=== PATIENT | female | born 1950 | race Caucasian/White ===

== ENCOUNTER → 2016-11-11 | Outpatient (CLI) | payer OTHER ==
[~2016-11-11] MED LIST: ACET-1222 PO; ALLDSR/24 PO; ASPCH81X PO; ATOR-54 PO; BENA20TA PO; BENA20TA14 PO; CMD5 PO; CYCL10TA6 PO; ESCI10TA17 PO; FEXO1TAB49 PO; FLUT0.0529 NAE; INSDGI SC; INSDGIPEN SC; MAGN400T6 PO; METF500T5 PO; METO25TA56 PO; METO5TAB2 PO; NAPR500T3 PO; REPA0.5T PO; RIZA1TAB11 PO; ULT50X PO; WARF5TAB90 PO
--- NOTE | 2016-11-11 14:53 | MAMMOGRAPHY REPORT ---
BILATERAL DIGITAL SCREENING MAMMOGRAM WITH CAD: 11/11/2016 TECHNIQUE: Current study was also evaluated with a Computer Aided Detection (CAD) system. Bilatera l CC and MLO views were obtained. COMPARISON: Comparison is made to exams dated: 10/31/2014 mammogram, 11/06/2015 mammogram, 10/25/2013 m ammogram, 10/12/2012 mammogram, 10/07/2011 mammogram, and 10/01/2010 mammogram - [facility] enter. BREAST COMPOSITION: There are scattered areas of fibroglandular density in both breasts. FINDINGS: No suspicious masses, calcifications, or areas of architectural distortion are noted in e ither breast. There has been no significant interval change compared to prior exams. Scattered bilat eral benign-appearing calcifications are not significantly changed. IMPRESSION: ACR BI-RADS CATEGORY 2: BENIGN There is no mammographic evidence of malignancy. A 1 year screening mammogram is recommended. The p atient will receive written notification of the results. Approximately 10% of breast cancers are not detected with mammography. A negative mammographic repor t should not delay biopsy if a clinically suggestive mass is present. Elvira Villegas M.D. ah/:11/11/2016 08:05:10 Technical Support Technician: Annetta TONG(Mark)(M), [facility] letter sent: Normal 1/2 BI-RADS Code: ACR BI-RADS Category 2: Benign
== END | disposition home or self-care (01) ==
LOC: C.MAMM 07:16
PROVIDERS: ATTEND Family Medicine
DX: Z12.31 Encounter for screening mammogram for malignant neoplasm of breast (principal)

== ENCOUNTER → 2017-11-18 | Outpatient (CLI) | payer OTHER ==
[~2017-11-18] MED LIST changes: -ALLDSR/24 PO; -ASPCH81X PO; -BENA20TA PO; -CYCL10TA6 PO; -FLUT0.0529 NAE; -INSDGI SC; -METO5TAB2 PO; -NAPR500T3 PO; -REPA0.5T PO
--- NOTE | 2017-11-18 14:16 | MAMMOGRAPHY REPORT ---
BILATERAL DIGITAL SCREENING MAMMOGRAM TOMOSYNTHESIS WITH CAD: 11/18/2017 CLINICAL HISTORY: Routine screening. Patient has no complaints. TECHNIQUE: Breast tomosynthesis in addition to standard 2D mammography was performed. Current study was also evaluated with a Computer Aided Detection (CAD) system. COMPARISON: Comparison is made to exams dated: 11/11/2016 mammogram, 11/06/2015 mammogram, 10/31/2014 ma mmogram, 10/25/2013 mammogram, 10/12/2012 mammogram, and 10/07/2011 mammogram - [facility] nter. BREAST COMPOSITION: There are scattered areas of fibroglandular density in both breasts. FINDINGS: No suspicious masses, calcifications, or areas of architectural distortion are noted in ei ther breast. There has been no significant interval change compared to prior exams. Scattered bilater al benign-appearing calcifications are not significantly changed. IMPRESSION: ACR BI-RADS CATEGORY 2: BENIGN There is no mammographic evidence of malignancy. A 1 year screening mammogram is recommended. The pa tient will receive written notification of the results. Approximately 10% of breast cancers are not detected with mammography. A negative mammographic report should not delay biopsy if a clinically suggestive mass is present. Elvira Villegas M.D. /:11/18/2017 07:43:18 Concession Attendant: Shanda JONAS)(Jose), [facility] letter sent: Normal 1/2 BI-RADS Code: ACR BI-RADS Category 2: Benign
== END | disposition home or self-care (01) ==
LOC: C.MAMM 07:21
PROVIDERS: ATTEND Family Medicine
DX: Z12.31 Encounter for screening mammogram for malignant neoplasm of breast (principal)

== ENCOUNTER 2025-02-19 15:52 | Inpatient (IN) ==
--- NOTE | 2025-02-19 16:19 | Emergency Department Note ---
Impression & Plan Chest pain on exertion, HTN (hypertension), Atrial fibrillation, currently in sinus rhythm, On apixaban therapy ED Provider Note NAME: MARIUM LOPEZ AGE: 74 SEX: F : 1950 ARRIVES VIA: Ambulance INFORMANT: Patient ED PROVIDER(S): Raffi Gallegos MD CHIEF COMPLAINT: Chest pain PLAN: Disposition: Admit MEDICAL DECISION MAKING: The patient is a pleasant 74-year-old woman with a past medical history of atrial fibrillation on Eliquis, hypertension who presents to the emergency department via EMS coming by her for evaluation of chest pain that began at 8 AM this morning when she was doing housework. Patient denies any prior history of exertional chest pain. She reports her pain resolved after receiving nitroglycerin and full dose aspirin by EMS. The patient reports she did feel as though she may have had some increased indigestion this morning when she was at rest but then felt the pain become worse and persist. She reports having some intermittent headache and back pain this morning and over the past month or so. Patient was seen in urgent care in December for concern for tick bite. On evaluation the patient is in no acute distress, afebrile blood pressure 140/60s and present otherwise stable. She appears clinically dry. She exhibits no focal neurologic deficits. EKG without overt acute ischemia. CXR negative for acute cardiopulmonary process per my personal preliminary review/interpretation. WBC, H/H and platelets within normal limits. Chemistry without metabolic acidosis. Creatinine 1.3 similar to prior range of values. Electrolytes LFTs unremarkable. Initial high-sensitivity troponin 3.3, within normal limits. Lipase is normal. TSH within limits. Lyme screen was negative. Given the patient's report of pain which worsened with exertion and improvement with nitroglycerin and aspirin cardiac etiology cannot be completely excluded at this time. Heart score is 5, moderate risk. Patient does agree with plan for admission for further evaluation. Case was discussed with Thong Snell with [facility] hospitalist to evaluate the patient for admission. Further management per admitting team. Triage Nursing notes reviewed and agree them. Prior/external medical records reviewed Vital Signs: reviewed Differential diagnosis: Cardiac ischemia, aortic dissection, pulmonary embolism, pneumothorax, pneumonia, pericarditis, myocarditis, esophageal rupture, GERD, cholecystitis, pancreatitis, musculoskeletal, as well as other pathologies. ER treatment provided: See below. Diagnostics interpreted by me: ECG: Sinus rhythm, first degree AV block, 61 bpm, no overt ST elevation or depression Cardiac Monitoring: An order for continuous cardiac monitoring was placed and demonstrated sinus rhythm, first-degree AV block, 61 bpm, no ectopy. Laboratory studies: See below Imaging studies: See below Consultation(s): Thong Snell with [facility] hospitalist HPI: Per MDM. ROS: See above HPI for pertinent positives & negatives. A total of 10 systems reviewed and were otherwise negative. VITALS:See Below PHYSICAL EXAMINATION: GENERAL: Awake, alert, in no distress HENT: Normocephalic, atraumatic. Oropharynx with dry mucous membranes and otherwise unremarkable. EYES: Normal conjunctiva. Sclera non-icteric. NECK: Supple. No nuchal rigidity. FROM. No JVD. RESPIRATORY: Clear to auscultation. CARDIAC: Regular rate, normal rhythm. Extremities warm and well perfused. Pulses equal. ABDOMEN: Soft, non-distended. No tenderness to palpation. No rebound or guarding. No masses. MUSCULOSKELETAL: Chest examination reveals no tenderness. The back is symmetrical on inspection without obvious abnormality. There is no CVA tenderness to palpation. No joint edema. LOWER EXTREMITIES: Calves are equal size bilaterally and non-tender. No edema. No discoloration. NEURO: Cranial nerves II-XII grossly intact. 5/5 strength and SILT x 4 extremities. Intact [id number]. SKIN: No rash or jaundice noted. Raffi Gallegos MD Past Med/Surg History Problem List On apixaban therapy (Acute) Chest pain on exertion (Acute) Rotator cuff arthropathy of right shoulder History of knee replacement, total (Chronic) "both knees around 2006" Afib (Chronic) Hypertension (Chronic) History of diabetes mellitus Atrial fibrillation, currently in sinus rhythm (Acute) Atrial fibrillation, currently in sinus rhythm (Acute) HTN (hypertension) (Chronic) Anticoagulated on Coumadin (Chronic) Other bilateral secondary osteoarthritis of knee (Chronic) Depression (Chronic) S/P KAIT (total abdominal hysterectomy) (Chronic) Social History Smoking Status: Never smoker Hx Alcohol Use: Yes Hx Substance Use: No Preferred Language: Danish Communication Ability: Effective Clinic Assistant Required: No Beliefs That Will Affect Care: None Current Living Situation: Spouse Feels Safe at Home: Yes Safety Concerns: Feels Safe At This Time Allergies Allergies Allergy/AdvReac Type Severity Reaction Status Date / Time No Known Allergies Allergy Mild Verified 02/19/25 18:11 Home Meds Home Medications Medication Instructions Recorded Confirmed atorvastatin 20 mg tablet 20 mg PO DAILY #0 tabs 07/31/13 02/19/25 escitalopram oxalate 10 mg tablet 10 mg PO DAILY ##0 05/02/17 02/19/25 (Lexapro) fexofenadine 180 mg tablet 180 mg PO DAILY #0 tabs 05/02/17 02/19/25 (Ashanti Allergy) magnesium oxide 400 mg PO DAILY #0 tabs 05/02/17 02/19/25 metformin 500 mg tablet,extended 500 mg PO BID ##0 05/02/17 02/19/25 release 24 hr metoprolol tartrate 25 mg tablet 12.5 mg PO DAILY ##0 05/02/17 02/19/25 apixaban 5 mg tablet (Eliquis) 5 mg PO BID 01/08/24 02/19/25 benazepril 10 mg tablet 10 mg PO DAILY 01/08/24 02/19/25 allopurinol 100 mg tablet 100 mg PO DAILY 01/06/25 02/19/25 insulin degludec 100 29 unit subcut DAILY 02/19/25 02/19/25 unit-liraglutide 3.6 mg/mL(3 mL) subcutaneous pen (Xultophy 100/3.6) sitagliptin phosphate 25 mg tablet 25 mg PO DAILY 02/19/25 02/19/25 (Januvia) Results & Data (ED) Vital Signs Vital Signs - 24 hr 02/19/25 15:41 02/19/25 15:55 02/19/25 15:55 Temperature 36.6 C 36.6 C Temperature Source Oral Oral Pulse Rate 73 Pulse Rate [Left Finger] 63 Respiratory Rate 18 18 Respiratory Effort / Characteristics Non-Labored Respiratory Depth Normal Respiratory Pattern Regular Blood Pressure 148/66 H Blood Pressure [Left Arm] 148/66 H Blood Pressure Mean 93 Blood Pressure Mean [Left Arm] 93 Pulse Oximetry 92 94 Oxygen Delivery Method Room Air Room Air Room Air Sepsis Recent Fever Within 48 Hours No Sepsis New/Unexplained Change in Mental Status No Sepsis Action Taken by Nursing No Action Required 02/19/25 16:25 Temperature Temperature Source Pulse Rate 65 Pulse Rate [Left Finger] Respiratory Rate 16 Respiratory Effort / Characteristics Respiratory Depth Respiratory Pattern Blood Pressure Blood Pressure [Left Arm] Blood Pressure Mean Blood Pressure Mean [Left Arm] Pulse Oximetry 96 Oxygen Delivery Method Room Air Sepsis Recent Fever Within 48 Hours Sepsis New/Unexplained Change in Mental Status Sepsis Action Taken by Nursing Laboratory Data Attestation: I reviewed the patient's lab results. 02/19/25 16:00 02/19/25 16:00 Lab Results 02/19/25 02/19/25 Range/Units 16:00 17:00 WBC 10.63 (4.8-10.8) K/ul RBC 4.21 (4.20-5.40) M/uL Hgb 12.2 (12.0-16.0) g/dl Hct 37.5 (37.0-47.0) % MCV 89.1 (80.0-100.0) fL MCH 29.0 (25.0-34.0) pg MCHC 32.5 (32.0-36.0) g/dL RDW Std Deviation 43.8 (36.4-46.3) fL RDW Coeff of Olya 13.4 (11.5-14.5) % Plt Count 258 (130-400) K/uL MPV 9.9 (9.4-12.4) fL Immature Gran % (Auto) 0.3 % Neut % (Auto) 66.2 % Lymph % (Auto) 23.9 % Nash % (Auto) 6.5 % Eos % (Auto) 2.6 % Baso % (Auto) 0.5 % Neut # (Auto) 7.04 H (1.40-6.50) K/uL Lymph # (Auto) 2.54 (1.20-3.40) K/uL Nash # (Auto) 0.69 H (0.11-0.59) K/uL Eos # (Auto) 0.28 (0.00-0.50) K/uL Baso # (Auto) 0.05 (0.00-0.20) K/uL Immature Gran # (Auto) 0.03 (0.01-0.20) K/uL PT 10.4 (9.0-12.0) Seconds INR 1.0 (0.9-1.1) Sodium 135 L (136-145) mmol/L Potassium 4.4 (3.5-5.1) mmol/L Chloride 100 (98-107) mmol/L Carbon Dioxide 26 (21-32) mmol/L Anion Gap 9 (3-11) BUN 25 H (6-23) mg/dl Creatinine 1.37 H (0.6-1.2) mg/dl Est Cr Clr Drug Dosing 36.2 ml/min eGFR 40.52 BUN/Creatinine Ratio 18.2 (10-20) Glucose 188 H (70-99(Fasting)) mg/dl Calcium 9.1 (8.6-10.3) mg/dl Phosphorus 3.6 (2.5-4.9) mg/dl Magnesium 1.9 (1.7-2.4) mg/dl Total Bilirubin 0.3 (0.2-1.0) mg/dl AST 20 (13-39) U/L ALT 16 (7-52) U/L Alkaline Phosphatase 98 (34-104) U/L Troponin I High Sens 3.3 (0-14) pg/ml Total Protein 6.9 (6.0-8.3) gm/dl Albumin 3.8 (3.4-5.0) gm/dl Globulin 3.1 (2.5-4.0) gm/dl Albumin/Globulin Ratio 1.2 (0.9-2) Lipase 62 (11-82) U/L TSH 1.145 (0.300-4.500) uIu/ml Urine Color Yellow Urine Appearance Clear (Clear) Urine pH 7.5 (4.5-7.5) Ur Specific [place] 1.012 (1.000-1.030) Urine Protein Negative (Negative) Urine Glucose (UA) Negative (Negative) Urine Ketones Negative (Negative) Urine Blood Negative (Negative) Urine Nitrite Negative (Negative) Urine Bilirubin Negative (Negative) Urine Urobilinogen Negative (Negative) Ur Leukocyte Esterase Trace H (Negative) Urine WBC (Auto) 0-5 (0-5) /hpf Urine RBC (Auto) 3-5 H (0-2) /hpf U Hyaline Cast (Auto) 0-2 (0-2) /lpf U Epithel Cells (Auto) 0-2 (0-2) /hpf Urine Bacteria (Auto) None Seen (None Seen) Urine Comment Lyme Disease Screen Negative (Negative) Administered Medications Apixaban (Apixaban 5 Mg Tablet) 5 mg PO BID SHASHI Stop: 03/21/25 20:59 Last Admin: 02/19/25 21:58 Dose: 5 mg Documented By: KRT Insulin Aspart (Insulin Aspart Per Unit Charge) 0 units SC Q6 SHASHI Stop: 03/21/25 20:59 Last Admin: 02/20/25 04:59 Dose: Not Given Documented By: Admin: 02/19/25 23:11 Dose: Not Given Documented By: Admin: 02/19/25 21:54 Dose: Not Given Documented By: KRT Metoprolol Succinate (Metoprolol Succ 25mg Ext Rel Tab) 12.5 mg PO BID [facility] Stop: 03/21/25 20:59 Last Admin: 02/19/25 22:02 Dose: Not Given Documented By: KRT Discontinued Medications Sodium Chloride (Nss) 500 mls @ 999 mls/hr IV .Q31M ONE Stop: 02/19/25 16:41 Last Infusion: 02/19/25 18:52 Dose: Infused Documented By: Admin: 02/19/25 16:37 Dose: 999 mls/hr Documented By: CRISTINA Imaging Data Radiologist's Impression: Chest X-Ray 02/19/25 16:11 EXAM: X-ray chest one-view portable CLINICAL HISTORY: Chest pain PRIORS: 05/02/2017 TECHNIQUE: Frontal view chest FINDINGS: Large body habitus noted. The chest is well-expanded. No airspace consolidation, effusion or congestive changes. Heart size is normal. No pneumothorax. Trachea is patent. Osseous structures demonstrate no acute abnormality. No radiopaque foreign body. IMPRESSION: No plain film evidence of an acute cardiopulmonary process. Electronically signed by Izabela Willis 02-19-2025 4:57 PM Discharge Plan Visit Data Chief Complaint: Chest Pain Stated Complaint: CHEST PAIN ED Provider: Raffi Gallegos Discharge Problem: Chest pain on exertion, HTN (hypertension), Atrial fibrillation, currently in sinus rhythm, On apixaban therapy Patient Disposition: Admitted As Inpatient Condition: Fair Discharge Instructions Interventions: ED Discharge Assessment Last Done: 02/19/25 20:15 Discharge Problem: HTN (hypertension) Qualifiers: Hypertension type: unspecified Qualified Code(s): I10 - Essential (primary) hypertension
[2025-02-19 16:22] LABS: Hematocrit (blood only) 37.5 % (37.0-47.0); Hemoglobin 12.2 g/dl (12.0-16.0); Immature Granulocytes # (auto) 0.03 K/uL (0.01-0.20); Immature Granulocytes % (auto) 0.3 %; Mean Corpuscular Hemoglobin 29.0 pg (25.0-34.0); Mean Corpuscular Volume 89.1 fL (80.0-100.0); Platelet Count 258 K/uL (130-400); RDW Standard Deviation 43.8 fL (36.4-46.3); Red Blood Count 4.21 M/uL (4.20-5.40); White Blood Count 10.63 K/ul (4.8-10.8)
[2025-02-19] MEDS: SODIUM CHLORIDE 0.9% 500 ML IV ONE (16:37)
[2025-02-19 16:39] LABS: Alanine Aminotransferase 16.0 U/L (7-52); Albumin Globulin Ratio 1.2 (0.9-2); Alkaline Phosphatase 98.0 U/L (34-104); Anion Gap 9.0 (3-11); Bilirubin,Total 0.3 mg/dl (0.2-1.0); Blood Urea Nitrogen 25.0 mg/dl (6-23); Calcium 9.1 mg/dl (8.6-10.3); Carbon Dioxide 26.0 mmol/L (21-32); Chloride 100.0 mmol/L (98-107); Creatinine Clr Calc Pharmacy 36.2 ml/min; Globulin 3.1 gm/dl (2.5-4.0); Glucose 188.0 mg/dl (70-99(Fasting)); Lipase 62.0 U/L (11-82); Magnesium 1.9 mg/dl (1.7-2.4); Potassium 4.4 mmol/L (3.5-5.1); Sodium 135.0 mmol/L (136-145); Total Protein 6.9 gm/dl (6.0-8.3)
[2025-02-19 16:50] LABS: INR 1.0 (0.9-1.1); Prothrombin Time 10.4 Seconds (9.0-12.0)
[2025-02-19 16:54] LABS: Thyroid Stimulating Hormone 1.145 uIu/ml (0.300-4.500)
--- NOTE | 2025-02-19 16:57 | XRay Report ---
EXAM: X-ray chest one-view portable CLINICAL HISTORY: Chest pain PRIORS: 05/02/2017 TECHNIQUE: Frontal view chest FINDINGS: Large body habitus noted. The chest is well-expanded. No airspace consolidation, effusion or congestive changes. Heart size is normal. No pneumothorax. Trachea is patent. Osseous structures demonstrate no acute abnormality. No radiopaque foreign body. IMPRESSION: No plain film evidence of an acute cardiopulmonary process. Electronically signed by Izabela Wilils 02-19-2025 4:57 PM
[2025-02-19 17:17] LABS: Appearance Urine Clear (Clear); Bacteria Urine Automated None Seen (None Seen); Cast Urine Automated 0-2 /lpf (0-2); Epithelial Cell Urine Auto 0-2 /hpf (0-2); Glucose Urine UA Negative (Negative); WBC Urine Automated 0-5 /hpf (0-5)
--- NOTE | 2025-02-19 18:39 | History & Physical Report ---
<Statement entered by Richar Stone, - 02/19/25 18:43> Qualifies as cardiac chest pain/angina by description. Multiple cardiac risk factors. Chest pain has resolved with nitro. Troponin reassuring. For stress test in AM. Given 50% of basal insulin in AM as she will be NPO. Date of Service February 19, 2025 Assessment & Plan (1) Chest pain on exertion: Plan: 74 F with past medical history of Afib on Eliquis and rate control with m etoprolol, HTN, DM Type II without insulin presenting with chest pain. Reports having chest pain when listing a pot of water to freeze corn this morning. Chest pain 8/10, throbbing, and radiating to head, neck and back. She thought it was initially indigestion, but persisted throughout the day. She took Tylenol and a baby aspirin at home. Arrived here via EMS. Aspirin and Nitro given by EMS with relief of chest pain. #Chest pain, exertional * Admit to Telemetry for further workup * Chest pain, exertional in nature, w/ radiation to back/neck--> ASA and Nitro given EMS w/ relief * EKG with no acute ischemia * Chest Xray without acute cardiopulmonary dx * Initial Trop 3, 2H recheck pending. * Routine stress Echo ordered; Cardiology consult ordered * Most recent TTE on 11/12/2023 showing LV ejection Fraction = 55%; left ventricular diastolic function is mildly abnormal (grade I); New mild aortic valve sclerosis found * Stable Mag 1.9, Phos 3.6--> will recheck with AM labs * NPO at [place] for cardiac stress and poss cardiac cath tomorrow #Paroxysmal Afib * Continue rate control with home Metoprolol * Tele monitoring * EKG for chest pain as needed #CKD #Hypertension * BP Goal <130/80 * History of low BP's and recently weaned from benazepril; BP stable here 140's/80's * Stable renal functioning; Baseline Creatinine 1.1-1.2; now 1.37 #Diabetes Mellitus, Type II, insulin-dependent * SSI while inpatient * Hold home Xultophy; will given Lantus while inpatient--> decreased dose for NPO status * Most recent A1C 6.8% (12/2024) DVT Ppx: SCD's, on Eliquis Code status: Full PCP: Dr. Diane Mart Dispo: Admit for further workup Patient seen in collaboration with Dr. Stone. Please see addendum.I spent a total of 65 minutes coordinating, documenting and providing care for this patient excluding time spent in the performance of separately billed services or time spent by another provider/QHP. (2) Afib: (3) Hypertension: (4) History of diabetes mellitus: History of Present Illness Primary Care Provider: Diane Mart MD 74 F with past medical history of Afib on eliquis and rate control with metoprolol, HTN, DM Type II without insulin presenting with chest pain. Reports having chest pain when listing a pot of water to freeze corn this morning. Chest pain 8/10, throbbing, and radiating to head, neck and back. She thought it was initially indigestion, but persisted throughout the day. She took Tylenol and a baby aspirin at home. Arrived here via EMS. Aspirin and Nitro given by EMS with relief of chest pain. Denies fever, chills, weight loss, weakness, cognitive changes, vision/hearing changes, swelling, difficulty breathing, urinary concerns, N/V/D, joint swelling/pain, ambulation difficulty, skin rashes, lesions, bleeding, bruising. In the ED, patient was hemodynamically stable with no evidence of infection or sepsis. Labs were essentially unremarkable. Trop 3.3 initially with 2H recheck pending. History of Afib with rate control with Metoprolol, also on Eliquis. Mag and Phos stable. TSH norm. EKG showing Sinus rhythm, first AV block, 61 bpm, no overt ST elevation or depression, QTc 43, 236. Chest Xray showing acute cardiopulmonary process. As per external chart review, patient was seen by Cardiology on 11/2024. As per visit record, patient had a TTE on 11/12/2023 showing LV ejection Fraction = 55%; left ventricular diastolic function is mildly abnormal (grade I); Mild aortic valve sclerosis is present. On November 03, 2023, patient had a Lexiscan negative for inducible ischemia or myocardial scar. Gated SPECT images revealed normal myocardial thickening and wall motion. The LV ejection fraction was calculated at 70%. History obtained primarily from the patient and via hospitalization record. The patient's family was at the bedside and assisted with past medical history. External chart review obtained from [employer]. Allergies Allergy/AdvReac Type Severity Reaction Status Date / Time No Known Allergies Allergy Mild Verified 02/19/25 18:11 Home Medications Medication Instructions Recorded Confirmed Type atorvastatin 20 mg tablet 20 mg PO DAILY #0 tabs 07/31/13 02/19/25 History escitalopram oxalate 10 mg tablet 10 mg PO DAILY ##0 05/02/17 02/19/25 History (Lexapro) fexofenadine 180 mg tablet 180 mg PO DAILY #0 tabs 05/02/17 02/19/25 History (Ashanti Allergy) magnesium oxide 400 mg PO DAILY #0 tabs 05/02/17 02/19/25 History metformin 500 mg tablet,extended 500 mg PO BID ##0 05/02/17 02/19/25 History release 24 hr metoprolol tartrate 25 mg tablet 12.5 mg PO DAILY ##0 05/02/17 02/19/25 History apixaban 5 mg tablet (Eliquis) 5 mg PO BID 01/08/24 02/19/25 History benazepril 10 mg tablet 10 mg PO DAILY 01/08/24 02/19/25 History allopurinol 100 mg tablet 100 mg PO DAILY 01/06/25 02/19/25 History insulin degludec 100 29 unit subcut DAILY 02/19/25 02/19/25 History unit-liraglutide 3.6 mg/mL(3 mL) subcutaneous pen (Xultophy 100/3.6) sitagliptin phosphate 25 mg tablet 25 mg PO DAILY 02/19/25 02/19/25 History (Januvia) Past Med/Surg History Problem List Chest pain on exertion (Acute) Rotator cuff arthropathy of right shoulder History of knee replacement, total (Chronic) "both knees around 2006" Afib (Chronic) Hypertension (Chronic) History of diabetes mellitus Atrial fibrillation, currently in sinus rhythm (Acute) Atrial fibrillation, currently in sinus rhythm (Acute) HTN (hypertension) (Chronic) Anticoagulated on Coumadin (Chronic) Other bilateral secondary osteoarthritis of knee (Chronic) Depression (Chronic) S/P KAIT (total abdominal hysterectomy) (Chronic) Social History Smoking Status: Never smoker Preferred Language: Romansh Feels Safe at Home: Yes Review of Systems Review of Systems: All systems reviewed & are unremarkable except as noted in HPI & below Physical Exam Physical Exam: VITALS: Reviewed. WEIGHT/BMI reviewed. GEN: Healthy appearing, well-developed, NAD. PSYCH: Good Judgment. AOx3. Normal memory, mood, and affect. HEENT -Head: NC/AT; -Eyes: PERRL, EOMI. No discharge or redn ess; -Ears: External ears are normal. Normal TMs. -Nose: Normal nares. -Mouth and throat: MMM. Normal gums, muc lo, palate,. Good dentition. NECK: Supple, with no masses. CV: RRR, no m/r/g. LUNGS: CTAB, no w/r/c. ABD: Soft, NT/ND, NBS, no masses or organomegaly. : N/A SKIN: Warm, well perfused. No skin rashes or abnormal lesions. MSK: No deformities, Normal gait. EXT: No clubbing, cyanosis, or edema. NEURO: Ambulating with no limitations. Normal muscle strength and tone. No focal deficits. Results & Data Results & Data Vital Signs (Past 12 Hours) Vital Signs Temp Pulse Pulse Resp BP BP Pulse Ox 02/19/25 16:25 65 16 96 02/19/25 15:55 36.6 C 63 18 148/66 H 94 02/19/25 15:55 02/19/25 15:41 36.6 C 73 18 148/66 H 92 O2 Del Method 02/19/25 16:25 Room Air 02/19/25 15:55 Room Air 02/19/25 15:55 Room Air 02/19/25 15:41 Room Air Laboratory Results Short CBC 02/19/25 Range/Units 16:00 WBC 10.63 (4.8-10.8) K/ul Hgb 12.2 (12.0-16.0) g/dl Hct 37.5 (37.0-47.0) % Plt Count 258 (130-400) K/uL BMP 02/19/25 16:00 Sodium 135 L Potassium 4.4 Chloride 100 Carbon Dioxide 26 BUN 25 H Creatinine 1.37 H Glucose 188 H Calcium 9.1 Liver Function 02/19/25 Range/Units 16:00 Total Bilirubin 0.3 (0.2-1.0) mg/dl AST 20 (13-39) U/L ALT 16 (7-52) U/L Alkaline Phosphatase 98 (34-104) U/L Albumin 3.8 (3.4-5.0) gm/dl Urine 02/19/25 Range/Units 17:00 Urine Color Yellow Urine Appearance Clear (Clear) Urine pH 7.5 (4.5-7.5) Ur Specific [place] 1.012 (1.000-1.030) Urine Protein Negative (Negative) Urine Glucose (UA) Negative (Negative) Diagnostic Findings Chest X-Ray 02/19/25 16:11 EXAM: X-ray chest one-view portable CLINICAL HISTORY: Chest pain PRIORS: 05/02/2017 TECHNIQUE: Frontal view chest FINDINGS: Large body habitus noted. The chest is well-expanded. No airspace consolidation, effusion or congestive changes. Heart size is normal. No pneumothorax. Trachea is patent. Osseous structures demonstrate no acute abnormality. No radiopaque foreign body. IMPRESSION: No plain film evidence of an acute cardiopulmonary process. Electronically signed by Izabela Willis 02-19-2025 4:57 PM Code Status & VTE Plan VTE Prophylaxis Plan VTE Prophylaxis will be ordered: Yes Supervising Physician Co-Signing Physician Notes Patient seen and examined at bedside. qualifies as cardiac chest pain/angina. chest pain wiht exertion, relieved by nitro. EKG and troponin reassuring. For Stress test in AM.
[2025-02-19] MEDS ORDERED: PHARMACY GLYCEMIC MGMT CONSULT PRN (18:50)
[2025-02-19] MEDS ORDERED: ALUMINUM/MAGNESIUM SUSP 30 ML UDC PO PRN (20:37)
[2025-02-19] MEDS ORDERED: CARBOHYDRATES FOR HYPOGLYCEMIA PO PRN (20:37)
[2025-02-19] MEDS ORDERED: GLUCAGON FOR INJ 1 MG VIAL SQ PRN (20:37)
[2025-02-19] MEDS ORDERED: POLYETHYLENE (MIRALAX) 17 GM PACK PO PRN (20:37)
[2025-02-19] MEDS ORDERED: DEXTROSE 50% 50 ML SYRINGE IV PRN (20:37)
[2025-02-19] MEDS ORDERED: GLUCOSE 40% GEL 15 GM TUBE PO PRN (20:37)
[2025-02-19] MEDS ORDERED: GLUCOSE 10 TAB/TUBE PO PRN (20:37)
[2025-02-19] MEDS ORDERED: ONDANSETRON INJ 2 MG/ML 2 ML VIAL IV PRN (20:37)
[2025-02-19] MEDS ORDERED: MAGNESIUM HYDROXIDE SUSP 30 ML UDC PO PRN (20:37)
[2025-02-19] MEDS: INSULIN ASPART PER UNIT CHARGE SC SCH (21:54)
[2025-02-19] MEDS: APIXABAN 5 MG TABLET PO SCH (21:58)
[2025-02-19] MEDS: METOPROLOL SUCC 25MG EXT REL TAB PO SCH (22:02)
[2025-02-20 06:26] LABS: Hematocrit (blood only) 37.3 % (37.0-47.0); Hemoglobin 12.1 g/dl (12.0-16.0); Mean Corpuscular Hemoglobin 28.9 pg (25.0-34.0); Mean Corpuscular Volume 89.2 fL (80.0-100.0); Platelet Count 245 K/uL (130-400); RDW Standard Deviation 43.7 fL (36.4-46.3); Red Blood Count 4.18 M/uL (4.20-5.40); White Blood Count 7.61 K/ul (4.8-10.8)
[2025-02-20 06:59] LABS: Anion Gap 7.0 (3-11); Blood Urea Nitrogen 23.0 mg/dl (6-23); Calcium 9.6 mg/dl (8.6-10.3); Carbon Dioxide 26.0 mmol/L (21-32); Chloride 106.0 mmol/L (98-107); Creatinine Clr Calc Pharmacy 45.0 ml/min; Glucose 93.0 mg/dl (70-99(Fasting)); Magnesium 2.1 mg/dl (1.7-2.4); Potassium 4.4 mmol/L (3.5-5.1); Sodium 139.0 mmol/L (136-145)
--- NOTE | 2025-02-20 08:36 | Cardiology Consultation ---
Date of Consultation February 20, 2025 Assessment & Plan (1) Chest pain: (2) PAF (paroxysmal atrial fibrillation): (3) Hypertension: (4) Dyslipidemia, goal LDL below 70: (5) Family history of ischemic heart disease: Plan 74-year-old female presenting to [facility] ER via EMS on February 19, 2025 with chest discomfort predominantly atypical though with some concerning characteristics. Patient with multiple risk factors including hypertension, dyslipidemia, type 2 diabetes mellitus, family history of ischemic heart disease, inactivity, and obesity. EKG without acute change. High- sensitivity troponin negative x 1. Chest x-ray without acute cardiopulmonary findings. Telemetry monitoring benign thus far, revealing sinus with occasional atrial ectopy only; no atrial fibrillation. Patient chronically prescribed apixaban (Eliquis) anticoagulation. Recommendations: * Repeat high-sensitivity troponin * Repeat EKG * Refer for resting echocardiography * If above acceptable, proceed with Lexiscan nuclear stress testing, avoiding dobutamine augmentation noting arrhythmia history, patient unable to ambulate adequately for exercise stress echocardiography. * Continue metoprolol succinate, apixaban, and atorvastatin 20 mg/day. LDL cholesterol 43 mg/deciliter on November 15, 2024. * See recommendations by Dr. Maloney Supervising Physician Co-Signing Physician Notes Patient seen and examined. Past medical history, surgical history, social history and family history have been reviewed. The medical record and all the above studies have been reviewed. Case DW AZUL including management. Chest Pain - UT R/O HTN - suboptimal DM PAF - currently in sinus rhythm CKD Lexiscan stress test in AM Keep patient NPO post MN continue Eliquis continue statin, metoprolol succinate adjust anti-HTN meds keeping systolic BP between 100-140 mmHg keep patient euvolemic DVT prophylaxis salt restriction counseling medical management History of Present Illness Reason for Consultation: Chest pain Requesting Physician: [facility] Hospitalist Service, Flory BASILIO Attending Physician: [facility] Hospitalist Service, Dr. Mehrdad Alvarado MD History of Present Illness Beatriz Ha is a 75-year-old female who presented to the [facility] ER on February 19, 2025 via ambulance, with chest discomfort. The patient describes almost two days worth of throbbing left-sided chest discomfort along with discomfort in the back of the neck, upper back stiffness, and intermittent headache that became severe yesterday morning when freezing corn. Patient notes symptoms were similar to those when she had atrial fibrillation 5 or 6 years ago. In the ambulance patient received sublingual nitroglycerin and full dose aspirin with resolution of discomfort which returned to a mild degree last evening. EKG in the emergency room revealed sinus rhythm at 61 bpm with a first- degree AV block, without acute ST segment change. High-sensitivity troponin 3.3 pg/mL. Repeat troponin not available though ordered by the undersigned prior to interviewing and examining the patient. No recent activity related chest pain. Stable exertional dyspnea. No resting dyspnea, orthopnea, or PND. No lower extremity peripheral edema. No dizziness or syncope. No recent colds or illnesses. No fevers or chills. No night sweats. No excessive bruising or bleeding. Patient compliant with medications. No rash. Past Medical and Surgical History: Palpitations documented to occur in association with symptomatic ectopy, paroxysmal atrial fibrillation/flutter, chronically prescribed metoprolol succinate and apixaban (Eliquis anticoagulation 5 mg twice per day Hypertension, most recently with hypotension necessitating discontinuation of benazepril, also with hyperkalemia, and amlodipine Dyslipidemia. Aortic valve sclerosis. Type 2 diabetes mellitus Stage III chronic kidney disease Obesity Uterine fibroid Status post bilateral knee replacement Status post colonoscopy with polypectomies Status post right trigger finger release Vaginal hysterectomy Family History: Notable for CAD with both parent having had CABG. Social History: Never smoker. No smokeless tobacco. No alcohol. No illegal drug use. . 3 children. Works in the office at [employer]. Allergies Allergy/AdvReac Type Severity Reaction Status Date / Time No Known Allergies Allergy Mild Verified 02/19/25 18:11 Home Medications Medication Instructions Recorded Confirmed Type atorvastatin 20 mg tablet 20 mg PO DAILY #0 tabs 07/31/13 02/19/25 History escitalopram oxalate 10 mg tablet 10 mg PO DAILY ##0 05/02/17 02/19/25 History (Lexapro) fexofenadine 180 mg tablet 180 mg PO DAILY #0 tabs 05/02/17 02/19/25 History ([facility] All[facility]) magnesium oxide 400 mg PO DAILY #0 tabs 05/02/17 02/19/25 History metformin 500 mg tablet,extended 500 mg PO BID ##0 05/02/17 02/19/25 History release 24 hr metoprolol tartrate 25 mg tablet 12.5 mg PO DAILY ##0 05/02/17 02/19/25 History apixaban 5 mg tablet (Eliquis) 5 mg PO BID 01/08/24 02/19/25 History benazepril 10 mg tablet 10 mg PO DAILY 01/08/24 02/19/25 History allopurinol 100 mg tablet 100 mg PO DAILY 01/06/25 02/19/25 History insulin degludec 100 29 unit subcut DAILY 02/19/25 02/19/25 History unit-liraglutide 3.6 mg/mL(3 mL) subcutaneous pen (Xultophy 100/3.6) sitagliptin phosphate 25 mg tablet 25 mg PO DAILY 02/19/25 02/19/25 History ([place]) Patient History Social History Smoking Status: Never smoker Hx Alcohol Use: Yes Hx Substance Use: No Preferred Language: Setswana Communication Ability: Effective Dynamics Ax Consultant Required: No Beliefs That Will Affect Care: None Current Living Situation: Spouse Feels Safe at Home: Yes Safety Concerns: Feels Safe At This Time Assistive Devices: None Review of Systems Review of Systems: Complete Review of Systems is as stated above, negative, or noncontributory Physical Exam Physical Exam: General: A&Ox3. NAD. HENT: Normocephalic. Atraumatic. Eyes: PER. Conjunctiva pink, sclera clear. Neck: No carotid bruits. No JVD. Heart: RRR, 70 bpm. Soft systolic ejection murmur Lungs: Clear to auscultation. Abdomen: +BS. Extremities: No clubbing, cyanosis, or edema. Limited neurological examination is without focal deficits. Pulses: Posterior tibial=2/4. Results & Data Vital Signs (Past 12 Hours) Vital Signs Temp Pulse Pulse Resp BP Pulse Ox O2 Del Method 02/20/25 07:27 36.5 C 61 20 133/63 95 Room Air 02/20/25 07:13 56 L 02/20/25 05:06 36.5 C 57 L 18 154/72 H 96 Room Air 02/19/25 22:42 36.5 C 65 18 145/64 H 96 Room Air 02/19/25 21:43 65 Laboratory Results Cardiac Enzymes 02/19/25 Range/Units 16:00 AST 20 (13-39) U/L Troponin I High Sens 3.3 (0-14) pg/ml Coagulation 02/19/25 Range/Units 16:00 PT 10.4 (9.0-12.0) Seconds CBC 02/19/25 02/20/25 Range/Units 16:00 05:41 WBC 10.63 7.61 (4.8-10.8) K/ul RBC 4.21 4.18 L (4.20-5.40) M/uL Hgb 12.2 12.1 (12.0-16.0) g/dl Hct 37.5 37.3 (37.0-47.0) % Plt Count 258 245 (130-400) K/uL Neut # (Auto) 7.04 H (1.40-6.50) K/uL Lymph # (Auto) 2.54 (1.20-3.40) K/uL [place] # (Auto) 0.69 H (0.11-0.59) K/uL Eos # (Auto) 0.28 (0.00-0.50) K/uL Baso # (Auto) 0.05 (0.00-0.20) K/uL Comprehensive Metabolic Panel 02/19/25 02/20/25 Range/Units 16:00 05:41 Sodium 135 L 139 (136-145) mmol/L Potassium 4.4 4.4 (3.5-5.1) mmol/L Chloride 100 106 (98-107) mmol/L Carbon Dioxide 26 26 (21-32) mmol/L BUN 25 H 23 (6-23) mg/dl Creatinine 1.37 H 1.19 (0.6-1.2) mg/dl Glucose 188 H 93 (70-99(Fasting)) mg/dl Calcium 9.1 9.6 (8.6-10.3) mg/dl AST 20 (13-39) U/L ALT 16 (7-52) U/L Alkaline Phosphatase 98 (34-104) U/L Total Protein 6.9 (6.0-8.3) gm/dl Albumin 3.8 (3.4-5.0) gm/dl Intake and Output 02/19/25 02/20/25 02/20/25 22:59 06:59 14:59 Intake Total 500 / 500 Balance 500 / 500 Intake: IV 500 / 500 Sodium Chloride 0.9% 500 ml @ 500 / 500 999 mls/hr IV .Q31M ONE Rx#: [id number] Other: Weight 92.079 kg 89.8 kg Weight Measurement Method Standing Scale Built in [facility] 02/20/25 ECHOCARDIOGRAM Interpretation Summary Left ventricular systolic function is normal. Left Ventricular Ejection Fraction = 55-60%. Grade I diastolic dysfunction, (abnormal relaxation pattern). The aortic valve is tricuspid. The leaflet thickness if normal. There is no aortic stenosis, and no significant insufficiency. Mild pulmonic valvular regurgitation. There is mild mitral regurgitation. Grade I diastolic dysfunction, (abnormal relaxation pattern). Diagnostic Findings July [facility]: Indication: Atrial fibrillation. The patient was prescribed for 7-days but was monitored for 5-days. This represents 80-hours and 45 minutes of monitoring time. The average heart rate was 61 bpm. The heart rate ranged from 47 to 127 bpm. There was one asymptomatic event recorded which showed sinus rhythm and 5 symptomatic events with chest pain that also showed a normal sinus rhythm. September 05, 2015 ARI Interpretation Summary (as per Dr. Duque): The stress echo is negative for inducible ischemia. No arrhythmias. Normal HR and BP response to exercise. Below average exercise tolerance. At rest, normal LV chamber size and wall thickness. Normal LV systolic function without regional wall motion abnormality, EF 60-65%. Grade I diastolic dysfunction. No significant valvular pathology. November 12, 2023 TTE Interpretation Summary (as per Dr. Morrison): Calculated LV ejection Fraction = 55% (three dimensional volumes). The left ventricular wall motion is normal. The left ventricular diastolic function is mildly abnormal (grade I). Mild aortic valve sclerosis is present. Compared to last available study changes are noted as follows: Mild aortic valve sclerosis now present. November 03, 2023 Lexiscan Interpretation Summary (as per Dr. Morrison): Lexiscan myocardial perfusion imaging study is negative for inducible ischemia or myocardial scar. Gated SPECT images reveals normal myocardial thickening and wall motion. The LV ejection fraction is calculated at 70%. Telemetry: Sinus with occasional PAC's, heart rates predominately 50-70 bpm PG Care Time/CCT Total # of Minutes Spent Total Time Spent with Patient: Total time spent is greater than 50% in coordination of care (as documented) at patient's floor/unit and/or counseling patient. I spent a total of 50 minutes on the date of service in preparation, delivery, and documentation of the care provided to this patient excluding any time spent in the performance of separately billed services. This visit was a split-shared visit with the substantive portion of the medical decision making performed by the supervising home care companion/billing provider Dr. Maloney. Coding Level of Care Code 46554 IN/OBS CONSULT LVL 5,80M Diagnoses Chest pain R07.9 PAF (paroxysmal atrial fibrillation) I48.0 Hypertension I10 Dyslipidemia, goal LDL below 70 E78.5 Family history of ischemic heart disease Z82.49
[2025-02-20] MEDS: ESCITALOPRAM OXALATE 10 MG TAB PO SCH (08:38)
[2025-02-20] MEDS: MAGNESIUM OXIDE 400 MG TAB PO SCH (08:38)
[2025-02-20] MEDS: ATORVASTATIN 20 MG TAB PO SCH (08:38)
[2025-02-20] MEDS ORDERED: LANTUS PER UNIT CHARGE SC SCH (09:00)
[2025-02-20] MEDS: LANTUS PER UNIT CHARGE SC SCH (10:31)
--- NOTE | 2025-02-20 11:42 | Hospitalist Progress Note ---
Date of Service February 20, 2025 Assessment & Plan (1) Chest pain on exertion: Plan: 74 F with past medical history of Afib on Eliquis and rate control with metoprolol, HTN, DM Type II without insulin presenting with chest pain. Reports having chest pain when listing a pot of water to freeze corn this morning. Chest pain 8/10, throbbing, and radiating to head, neck and back. She thought it was initially indigestion, but persisted throughout the day. She took Tylenol and a baby aspirin at home. Arrived here via EMS. Aspirin and Nitro given by EMS with relief of chest pain. #Chest pain, exertional * Chest pain, exertional in nature, w/ radiation to back/neck--> ASA and Nitro given EMS w/ relief * Most recent TTE on 11/12/2023 showing LV ejection Fraction = 55%; left ventricular diastolic function is mildly abnormal (grade I); New mild aortic valve sclerosis found * EKG with no acute ischemia, Trop x 2 neg. * Chest Xray without acute cardiopulmonary dx * f/u on ECHO and stress test. * Cardio on board, appreciate recs. * NPO at [place] for poss cardiac cath tomorrow #Paroxysmal Afib * Continue rate control with home Metoprolol * Tele monitoring * EKG for chest pain as needed #CKD #Hypertension * BP Goal <130/80 * History of low BP's and recently weaned from benazepril; BP stable here. * Stable renal functioning; Baseline Creatinine 1.1-1.2; now wnl #Diabetes Mellitus, Type II, insulin-dependent * SSI while inpatient * Hold home Xultophy; will given Lantus while inpatient--> decreased dose for NPO status * Most recent A1C 6.8% (12/2024) DVT Ppx: SCD's, on Eliquis Code status: Full PCP: Dr. Diane Mart (2) Afib: (3) Hypertension: (4) History of diabetes mellitus: Admission and Anticipated Discharge Date Admission Date: February 19, 2025 Subjective Patient was seen and examined at bedside. Patient was sitting up in bed, on room air, NAD, resting comfortably. Patient denies further chest pain. Patient denies fever/chills/cough/sore throat/acute changes in bowel or bladder habits. Physical Exam Physical Exam: GEN: Healthy appearing, well-developed, NAD. PSYCH: Good Judgment. AOx3. Normal memory, mood, and affect. HEENT -Head: NC/AT; -Eyes: PERRL, EOMI. No discharge or redn ess; -Ears: External ears are normal. Normal TMs. -Nose: Normal nares. -Mouth and throat: MMM. Normal gums, muc lo, palate,. Good dentition. NECK: Supple, with no masses. CV: RRR, no m/r/g. LUNGS: CTAB, no w/r/c. ABD: Soft, NT/ND, NBS, no masses or organomegaly. : N/A SKIN: Warm, well perfused. No skin rashes or abnormal lesions. MSK: No deformities, Normal gait. EXT: No clubbing, cyanosis, or edema. NEURO: Ambulating with no limitations. Normal muscle strength and tone. No focal deficits. Results & Data Results & Data Vital Signs (Past 12 Hours) Vital Signs Temp Pulse Pulse Resp BP BP Pulse Ox 02/20/25 11:24 36.3 C L 57 L 18 159/72 H 97 02/20/25 07:27 36.5 C 61 20 133/63 95 02/20/25 07:13 56 L 02/20/25 05:06 36.5 C 57 L 18 154/72 H 96 O2 Del Method 02/20/25 11:24 Room Air 02/20/25 07:27 Room Air 02/20/25 07:13 02/20/25 05:06 Room Air
[2025-02-20] MEDS: ACETAMINOPHEN 325 MG TAB PO PRN (12:44)
[2025-02-20] MEDS ORDERED: Nursing to Pharmacy Communication SCH (13:15)
--- NOTE | 2025-02-20 13:23 | Pharmacy Report ---
Pharmacy Glycemic Short Note 2 - Date of Service February 20, 2025 - Glycemic Short BSG Results (Last 24 hours): 02/19/25 02/19/25 02/20/25 16:00 21:50 04:56 Glucose 188 H POC Glucose 139 H 96 02/20/25 02/20/25 05:41 11:20 Glucose 93 POC Glucose 116 H OUTPATIENT ANTIDIABETIC REGIMEN: * Metformin 500 mg BID, Xultophy 29 units qAM, Januvia 25 mg daily * A1c reported as 6.8% (12/2024; [employer] system) ASSESSMENT: * Patient admitted with chest pain, ordered diet with lunch and will NPO again after midnight for stress test * BSG 96 mg/dL this morning-- lantus dose reduced this AM- monitor * Novolog started between stress 1/2 based on weight PLAN FOR INPATIENT GLYCEMIC CONTROL: * Hold outpatient oral diabetes medications * Basal insulin * Lantus 12 units sq x 1 * Bolus insulin * NovoLog per scale ACHS or Q6hrs while NPO * Goal Range: Low 110 mg/dL - High 140 mg/dL * Correction Factor: 30 mg/dL/unit * Nutritional / Prandial insulin per carb ratio of 1 unit per 10 grams CHO consumed
--- NOTE | 2025-02-20 17:29 | XCELERA ---
[id number]
[2025-02-20] MEDS: INSULIN ASPART PER UNIT CHARGE SC SCH (17:37)
[2025-02-21 06:30] LABS: Anion Gap 7.0 (3-11); Blood Urea Nitrogen 24.0 mg/dl (6-23); Calcium 9.5 mg/dl (8.6-10.3); Carbon Dioxide 27.0 mmol/L (21-32); Chloride 104.0 mmol/L (98-107); Creatinine Clr Calc Pharmacy 44.7 ml/min; Glucose 165.0 mg/dl (70-99(Fasting)); Magnesium 2.2 mg/dl (1.7-2.4); Potassium 4.5 mmol/L (3.5-5.1); Sodium 138.0 mmol/L (136-145)
[2025-02-21] MEDS ORDERED: LANTUS PER UNIT CHARGE SC SCH (09:00)
[2025-02-21] MEDS: LANTUS PER UNIT CHARGE SC SCH (09:38)
--- NOTE | 2025-02-21 15:10 | Hospitalist Progress Note ---
Date of Service February 21, 2025 Assessment & Plan (1) Chest pain on exertion: Plan: 74 F with past medical history of Afib on Eliquis and rate control with metoprolol, HTN, DM Type II without insulin presenting with chest pain. Reports having chest pain when listing a pot of water to freeze corn this morning. Chest pain 8/10, throbbing, and radiating to head, neck and back. She thought it was initially indigestion, but persisted throughout the day. She took Tylenol and a baby aspirin at home. Arrived here via EMS. Aspirin and Nitro given by EMS with relief of chest pain. #Chest pain, exertional * Chest pain, exertional in nature, w/ radiation to back/neck--> ASA and Nitro given EMS w/ relief * Most recent TTE on 11/12/2023 showing LV ejection Fraction = 55%; left ventricular diastolic function is mildly abnormal (grade I); New mild aortic valve sclerosis found * EKG with no acute ischemia, Trop x 2 neg. * Chest Xray without acute cardiopulmonary dx * Cardio on board, appreciate recs. * cardiac stress test read pending #Paroxysmal Afib * Continue rate control with home Metoprolol * Tele monitoring * EKG for chest pain as needed #CKD #Hypertension * BP Goal <130/80 * History of low BP's and recently weaned from benazepril; BP stable here. * Stable renal functioning; Baseline Creatinine 1.1-1.2; now wnl #Diabetes Mellitus, Type II, insulin-dependent * SSI while inpatient * Hold home Xultophy; will given Lantus while inpatient--> decreased dose for NPO status * Most recent A1C 6.8% (12/2024) I spent a total of 40 minutes in direct patient care, including [id number] time with the patient and/or family, reviewing medical records, ordering and reviewing diagnostic tests, and coordinating care with other healthcare providers. This time includes: history taking, physical examination, medical decision making, counseling, ECG interpretation, imaging interpretation, lab interpretation, orders, and education, excluding time spent in the performance of separately billed services. (2) Afib: (3) Hypertension: (4) History of diabetes mellitus: Admission and Anticipated Discharge Date Admission Date: February 19, 2025 Subjective Patient seen and examined at bedside. Patient pacing around room, states she is looking forward to going home. Feels back to baseline Review of Systems Review of Systems: CONSTITUTIONAL: Patient denies fevers, chills, sweats and weight changes. EYES: Patient denies any visual symptoms. EARS, NOSE, AND THROAT: No difficulties with hearing. No symptoms of rhinitis or sore throat. CARDIOVASCULAR: Patient denies chest pains, palpitations, orthopnea and paroxysmal nocturnal dyspnea. RESPIRATORY: No dyspnea on exertion, no wheezing or cough. GI: No nausea, vomiting, diarrhea, constipation, abdominal pain, hematochezia or melena. : No urinary hesitancy or dribbling. No nocturia or urinary frequency. No abnormal urethral discharge. MUSCULOSKELETAL: No myalgias or arthralgias. NEUROLOGIC: No chronic headaches, no seizures. Patient denies numbness, tingling or weakness. PSYCHIATRIC: Patient denies problems with mood disturbance. No problems with anxiety. ENDOCRINE: No excessive urination or excessive thirst. DERMATOLOGIC: Patient denies any rashes or skin changes. Physical Exam Physical Exam: Gen: A&O 3 NAD HEENT: NCAT, EOMI, not icteric. External ears normal. No rhinorrhea. Moist mucous membranes. Neck: Supple, full range of motion, no observable masses, No meningeal sign. Lungs: No Respiratory distress. CV: RRR, no edema. Abdomen: Soft, nondistended, No rebound tenderness. MSK: No joint swelling, no redness. Skin: No rashes, petechiae, lesions. Normal color per patient. Neuro: Normal Gait, Grossly intact. Psych: Appropriate for situation. Results & Data Results & Data Vital Signs (Past 12 Hours) Vital Signs Temp Pulse Resp BP Pulse Ox O2 Del Method 02/21/25 07:22 36.3 C L 62 18 151/67 H 99 Room Air Laboratory Results -personally reviewed, creatinine around baseline Medications Administered Acetaminophen (Acetaminophen 325 Mg Tab) 650 mg PO Q4H PRN PRN Reason: Pain or Fever Stop: 03/21/25 20:36 Last Admin: 02/21/25 12:51 Dose: 650 mg Documented By: Admin: 02/20/25 17:37 Dose: 650 mg Documented By: Admin: 02/20/25 12:44 Dose: 650 mg Documented By: BECK Apixaban (Apixaban 5 Mg Tablet) 5 mg PO BID SHASHI Stop: 03/21/25 20:59 Last Admin: 02/21/25 09:58 Dose: 5 mg Documented By: Admin: 02/20/25 21:37 Dose: 5 mg Documented By: Admin: 02/20/25 08:38 Dose: 5 mg Documented By: Admin: 02/19/25 21:58 Dose: 5 mg Documented By: JILLIAN Atorvastatin Calcium (Atorvastatin 20 Mg Tab) 20 mg PO DAILY SHASHI Stop: 03/22/25 08:59 Last Admin: 02/21/25 09:38 Dose: 20 mg Documented By: Admin: 02/20/25 08:38 Dose: 20 mg Documented By: BECK Escitalopram Oxalate (Escitalopram Oxalate 10 Mg Tab) 10 mg PO DAILY SHASHI Stop: 03/22/25 08:59 Last Admin: 02/21/25 09:38 Dose: 10 mg Documented By: Admin: 02/20/25 08:38 Dose: 10 mg Documented By: BECK Insulin Aspart (Insulin Aspart Per Unit Charge) 0 units SC ACHS SHASHI Stop: 03/21/25 20:59 Last Admin: 02/21/25 13:35 Dose: 3 units Documented By: JP Co-signed By: CA Admin: 02/21/25 06:53 Dose: 1 units Documented By: JILLIAN Co-signed By: DM Admin: 02/20/25 21:35 Dose: Not Given Documented By: Admin: 02/20/25 17:37 Dose: 4 units Documented By: BECK Co-signed By: LCS Magnesium Oxide (Magnesium Oxide 400 Mg Tab) 400 mg PO DAILY SHASHI Stop: 03/22/25 08:59 Last Admin: 02/21/25 09:58 Dose: 400 mg Documented By: Admin: 02/20/25 08:38 Dose: 400 mg Documented By: BECK Metoprolol Succinate (Metoprolol Succ 25mg Ext Rel Tab) 12.5 mg PO BID SHASHI Stop: 03/21/25 20:59 Last Admin: 02/21/25 09:40 Dose: 12.5 mg Documented By: Admin: 02/20/25 21:34 Dose: Not Given Documented By: Admin: 02/20/25 08:38 Dose: 12.5 mg Documented By: Admin: 02/19/25 22:02 Dose: Not Given Documented By: JILLIAN
--- NOTE | 2025-02-21 20:55 | Myocardial Perfusion Study ---
Date of Service February 21, 2025 Myocardial Perfusion Study [facility] Myocardial Perfusion Study Report Indication: Chest Pain Conclusion: Lexiscan nuclear stress test positive for medium area of mild to moderate ischemia of the anterior-apical vs apical motion artifact and medium area of mild to moderate ischemia of the inferolateral wall. LV systolic function is normal with normal left ventricular wall motion. Calculated left ventricular ejection fraction is 62%. Clinical correlation is recommended. Technique: For the stress portion of the study, 30.7mCi of technetium 99m Cardiolite was injected at 11:35 AM on 02/21/2025. 30 minutes following the injection, imaging of the heart was performed in multiple projections. For the rest portion of the study, 10.1 mCi of technetium 99m Cardiolite was injected at 9:35 AM. One hour following the injection, imaging of the heart was performed in the same projections. Stress study: The patient underwent Lexiscan protocol for 3 minutes and 07 seconds. Workload achieved: 1.0 METS. The resting heart rate was 63 bpm rising to a maximal heart rate of 94 bpm. This value represents 64% of the maximal, age-predicted heart rate. The resting blood pressure was 177/80, the maximum blood pressure was 177/80. Symptoms: Transient shortness of breath with anxiety. Symptoms resolved within 5 minutes. Hypertensive baseline blood pressure with a normal response to Lexiscan infusion. Normal heart rate response to Lexiscan infusion. There were no significant ischemic EKG changes from baseline. Myocardial perfusion imaging: Nuclear images showed medium area of mild to moderate reversible perfusion defect of the anterior-apical wall vs apical motion artifact. There is also seen a medium area of mild to moderate reversible perfusion defect of the inferolateral wall. Gated SPECT imaging: Normal wall motion. Left ventricular cavity size is normal at rest. The calculated ejection fraction 62%.
--- NOTE | 2025-02-21 21:07 | Cardiology Progress Note ---
Date of Service February 21, 2025 Assessment & Plan (1) Chest pain: (2) PAF (paroxysmal atrial fibrillation): (3) Hypertension: (4) Dyslipidemia, goal LDL below 70: (5) Family history of ischemic heart disease: Plan 74-year-old female presenting to [facility] ER via EMS on February 19, 2025 with chest discomfort predominantly atypical though with some concerning characteristics. Patient with multiple risk factors including hypertension, dyslipidemia, type 2 diabetes mellitus, family history of ischemic heart disease, inactivity, and obesity. EKG without acute change. High- sensitivity troponin negative. Chest x-ray without acute cardiopulmonary findin gs. Telemetry monitoring revealing sinus with occasional atrial ectopy only; no atrial fibrillation. Patient chronically prescribed apixaban (Eliquis) anticoagulation. Chest Pain - NH R/O HTN - suboptimal DM PAF - currently in sinus rhythm CKD Lexiscan stress test DW patient including possibility of false positive cardiac cath procedure vs medical management, RIBA reviewed with patient and nathen marshall at bedside Patient understands and wants to proceed Case dw IC -> will schedule for 02/22/25 keep patient NPO post MN Hold Eliquis continue statin, metoprolol succinate start ACEI/ARB after cardiac cath adjust anti-HTN meds keeping systolic BP between 100-140 mmHg keep patient euvolemic DVT prophylaxis salt restriction counseling medical management RASHMI project manager/design manager and Anticipated Discharge Date Admission Date: February 19, 2025 Supervising Physician Co-Signing Physician Notes Subjective Patient on exam is sitting in bed in NAD; no c/o cp, sob, palpitations, dizziness, LOC Review of Systems Review of Systems: Complete Review of Systems is as stated above, negative, or noncontributory Physical Exam Physical Exam: General: A&Ox3. NAD. HENT: Normocephalic. Atraumatic. Eyes: PER. Conjunctiva pink, sclera clear. Neck: No carotid bruits. No JVD. Heart: RRR, 70 bpm. Soft systolic murmur Lungs: Clear to auscultation. Abdomen: +BS. Extremities: No clubbing, cyanosis, or edema. Limited neurological examination is without focal deficits. Results & Data Vital Signs (Past 12 Hours) Vital Signs Temp Pulse Resp BP Pulse Ox O2 Del Method 02/21/25 15:30 36.5 C 64 18 160/65 H 95 Room Air Diagnostic Findings Comprehensive Metabolic Panel 02/21/25 Range/Units 05:36 Sodium 138 (136-145) mmol/L Potassium 4.5 (3.5-5.1) mmol/L Chloride 104 (98-107) mmol/L Carbon Dioxide 27 (21-32) mmol/L BUN 24 H (6-23) mg/dl Creatinine 1.20 (0.6-1.2) mg/dl Glucose 165 H (70-99(Fasting)) mg/dl Calcium 9.5 (8.6-10.3) mg/dl Intake and Output 02/21/25 02/21/25 02/21/25 06:59 14:59 22:59 Intake Total 150 / 700 550 / 700 Balance 150 / 700 550 / 700 Intake: Oral 150 / 700 550 / 700 Other: Other Intake Source Patient is NPO # Unmeasured Voids 2 1 Weight 89.9 kg 02/20/25 ECHOCARDIOGRAM Interpretation Summary Left ventricular systolic function is normal. Left Ventricular Ejection Fraction = 55-60%. Grade I diastolic dysfunction, (abnormal relaxation pattern). The aortic valve is tricuspid. The leaflet thickness if normal. There is no aortic stenosis, and no significant insufficiency. Mild pulmonic valvular regurgitation. There is mild mitral regurgitation. Grade I diastolic dysfunction, (abnormal relaxation pattern). [facility], [place] Myocardial Perfusion Study Signed Patient: MARIUM LOPEZ DICTATED BY: Chin Maloney MD Date of Service February 21, 2025 Myocardial Perfusion Study k Myocardial Perfusion Study Report Indication: Chest Pain Conclusion: Lexiscan nuclear stress test positive for medium area of mild to moderate ischemia of the anterior-apical vs apical motion artifact and medium area of mild to moderate ischemia of the inferolateral wall. LV systolic function is normal with normal left ventricular wall motion. Calculated left ventricular ejection fraction is 62%. Clinical correlation is recommended. Technique: For the stress portion of the study, 30.7mCi of technetium 99m Cardiolite was injected at 11:35 AM on 02/21/2025. 30 minutes following the injection, imaging of the heart was performed in multiple projections. For the rest portion of the study, 10.1 mCi of technetium 99m Cardiolite was injected at 9:35 AM. One hour following the injection, imaging of the heart was performed in the same projections. Stress study: The patient underwent Lexiscan protocol for 3 minutes and 07 seconds. Workload achieved: 1.0 METS. The resting heart rate was 63 bpm rising to a maximal heart rate of 94 bpm. This value represents 64% of the maximal, age-predicted heart rate. The resting blood pressure was 177/80, the maximum blood pressure was 177/80. Symptoms: Transient shortness of breath with anxiety. Symptoms resolved within 5 minutes. Hypertensive baseline blood pressure with a normal response to Lexiscan infusion. Normal heart rate response to Lexiscan infusion. There were no significant ischemic EKG changes from baseline. Myocardial perfusion imaging: Nuclear images showed medium area of mild to moderate reversible perfusion defect of the anterior-apical wall vs apical motion artifact. There is also seen a medium area of mild to moderate reversible perfusion defect of the inferolateral wall. Gated SPECT imaging: Normal wall motion. Left ventricular cavity size is normal at rest. The calculated ejection fraction 62%. Medications Administered Home Medications Medication Instructions Recorded Confirmed Last Taken atorvastatin 20 mg tablet 20 mg PO DAILY #0 tabs 07/31/13 02/19/25 02/18/25 escitalopram oxalate 10 mg tablet 10 mg PO DAILY ##0 05/02/17 02/19/25 02/19/25 (Lexapro) fexofenadine 180 mg tablet 180 mg PO DAILY #0 tabs 05/02/17 02/19/25 02/19/25 (Ashanti Allergy) magnesium oxide 400 mg PO DAILY #0 tabs 05/02/17 02/19/25 02/19/25 metformin 500 mg tablet,extended 500 mg PO BID ##0 05/02/17 02/19/25 02/19/25 release 24 hr metoprolol tartrate 25 mg tablet 12.5 mg PO DAILY ##0 05/02/17 02/19/25 02/19/25 apixaban 5 mg tablet (Eliquis) 5 mg PO BID 01/08/24 02/19/25 02/19/25 benazepril 10 mg tablet 10 mg PO DAILY 01/08/24 02/19/25 02/19/25 allopurinol 100 mg tablet 100 mg PO DAILY 01/06/25 02/19/25 02/19/25 insulin degludec 100 29 unit subcut DAILY 02/19/25 02/19/25 02/19/25 unit-liraglutide 3.6 mg/mL(3 mL) subcutaneous pen (Alexy 100/3.6) sitagliptin phosphate 25 mg tablet 25 mg PO DAILY 02/19/25 02/19/25 02/19/25 (Newton) Active Medications Generic Name Dose Route Start Last Admin Trade Name Freq PRN Reason Stop Dose Admin Acetaminophen 650 mg 02/19/25 20:37 02/21/25 12:51 Acetaminophen 325 Mg Tab PO 03/21/25 20:36 650 mg Q4H PRN Administration Pain or Fever Apixaban 5 mg 02/19/25 21:00 02/21/25 09:58 Apixaban 5 Mg Tablet PO 03/21/25 20:59 5 mg BID SHASHI Administration Atorvastatin Calcium 20 mg 02/20/25 09:00 02/21/25 09:38 Atorvastatin 20 Mg Tab PO 03/22/25 08:59 20 mg DAILY SHASHI Administration Escitalopram Oxalate 10 mg 02/20/25 09:00 02/21/25 09:38 Escitalopram Oxalate 10 Mg Tab PO 03/22/25 08:59 10 mg DAILY SHASHI Administration Insulin Aspart 0 units 02/20/25 16:30 02/21/25 20:59 Insulin Aspart Per Unit Charge SC 03/21/25 20:59 Not Given ACHS SHASHI Magnesium Oxide 400 mg 02/20/25 09:00 02/21/25 09:58 Magnesium Oxide 400 Mg Tab PO 03/22/25 08:59 400 mg DAILY SHASHI Administration Metoprolol Succinate 12.5 mg 02/19/25 21:00 02/21/25 20:57 Metoprolol Succ 25mg Ext Rel Tab PO 03/21/25 20:59 12.5 mg BID SHASHI Administration PG Care Time/CCT Total # of Minutes Spent Total Time Spent with Patient: Total time spent is greater than 50% in coordination of care (as documented) at patient's floor/unit and/or counseling patient: Coding Level of Care Code 55955 SUB INP/OBS CARE 3/50MIN Diagnoses Chest pain R07.9 PAF (paroxysmal atrial fibrillation) I48.0 Hypertension I10 Dyslipidemia, goal LDL below 70 E78.5 Family history of ischemic heart disease Z82.49
[2025-02-22] MEDS ORDERED: LANTUS PER UNIT CHARGE SC SCH ×2 (09:00)
[2025-02-22] MEDS: LANTUS PER UNIT CHARGE SC SCH (09:47)
[2025-02-22 11:38] VITALS: TEMP 98.1
--- NOTE | 2025-02-22 12:27 | Pharmacy Report ---
Pharmacy Glycemic Short Note 2 - Date of Service February 22, 2025 - Glycemic Short BSG Results (Last 24 hours): 02/21/25 02/21/25 02/21/25 12:46 17:00 20:44 POC Glucose 169 H 177 H 112 H 02/22/25 06:51 POC Glucose 117 H OUTPATIENT ANTIDIABETIC REGIMEN: * Metformin 500 mg BID, Xultophy 29 units qAM, Januvia 25 mg daily * A1c reported as 6.8% (12/2024; [employer] system) ASSESSMENT: * Patient admitted with chest pain, ordered diet with lunch and will NPO again after midnight for stress test * BSG 96 mg/dL this morning-- lantus dose reduced this AM- monitor * Novolog started between stress 06/29 based on weight 02/22: * Patient received a total of 22 units of insulin yesterday, 12 of which were basal. * BSGs were [phone] mg/dL yesterday and fasting was 117 mg/dL today * Patient made NPO again today for procedure. Will reduce lantus dose to 12 units again today. PLAN FOR INPATIENT GLYCEMIC CONTROL: * Hold outpatient oral diabetes medications * Basal insulin * Lantus 12 units sq qam- plan to increase once diet ordered consistently * Bolus insulin * NovoLog per scale ACHS or Q6hrs while NPO * Goal Range: Low 110 mg/dL - High 140 mg/dL * Correction Factor: 30 mg/dL/unit * Nutritional / Prandial insulin per carb ratio of 1 unit per 10 grams CHO consumed
[2025-02-22] MEDS: REGADENOSON 0.4 MG/5 ML SYR IV ONE (13:15)
--- NOTE | 2025-02-22 13:15 | Pre Anesthesia Assessment ---
Date of Service February 22, 2025 Pre Sedation Assessment Vital Signs Temp Pulse Pulse Pulse Resp BP Pulse Ox 02/22/25 12:55 59 L 02/22/25 12:33 62 16 148/56 H 97 02/22/25 11:37 98.1 F 68 18 137/72 97 02/22/25 08:08 97.5 F L 61 18 140/73 98 02/22/25 05:15 98.4 F 56 L 18 152/69 H 95 02/22/25 00:33 98.1 F 70 18 129/83 97 02/21/25 22:03 63 02/21/25 20:45 97.5 F L 62 18 147/63 H 98 02/21/25 15:30 97.7 F 64 18 160/65 H 95 O2 Del Method 02/22/25 12:55 02/22/25 12:33 Room Air 02/22/25 11:37 Room Air 02/22/25 08:08 Room Air 02/22/25 05:15 Room Air 02/22/25 00:33 Room Air 02/21/25 22:03 02/21/25 20:45 Room Air 02/21/25 15:30 Room Air Cardiovascular + regular rate Respiratory + respiratory effort normal Pre-Sedation Airway Assessment Smoking Status: Never smoker Hx Sleep Apnea: No Short, Thick Neck: No Thyromental Distance: > or= 3.5 Finger Breadths Oral Cavity: + WNL Mallampati Class: III ASA: ASA3 NPO Status Date of Last Intake of Fluids: 02/22/25 Time of Last Intake of Fluids: 07:00 Last Oral Intake of Fluids Comment: sips with pills Date of Last Intake of Solid Food: 02/21/25 Time of Last Intake of Solid Foods: 20:00 Procedure Planning Contraindications for Sedation: none Current Medications Reviewed: Yes Notes The planned sedation has been discussed with the patient. Informed Consent was obtained. I have identified the patient, determined the appropriateness of sedation and have assessed the patient immediately prior to the procedure. All medicine(s) and interventions are by my order.
[2025-02-22] MEDS: niCARdipine 2,000 MCG/20 ML SYR ONE (13:18)
[2025-02-22] MEDS: NITROGLYCERIN/D5W 100MCG/ML 20ML SYR ONE (13:19)
[2025-02-22] MEDS: HEPARIN (PORCINE) 1000 UNIT/ML 10 ML (CATH LAB USE ONLY) ONE (13:24)
[2025-02-22] MEDS: MIDAZOLAM HCL 1 MG/ML 2ML VIAL ONE (13:25)
[2025-02-22] MEDS: IODIXANOL (VISIPAQUE) 320 MG/ML 100ML IV ONE (13:25)
--- NOTE | 2025-02-22 13:39 | Post Anesthesia Assessment ---
Date of Service February 22, 2025 Post Sedation Assessment Vital Signs Temp Pulse Pulse Pulse Resp BP Pulse Ox 02/22/25 12:55 59 L 02/22/25 12:33 62 16 148/56 H 97 02/22/25 11:37 98.1 F 68 18 137/72 97 02/22/25 08:08 97.5 F L 61 18 140/73 98 02/22/25 05:15 98.4 F 56 L 18 152/69 H 95 02/22/25 00:33 98.1 F 70 18 129/83 97 02/21/25 22:03 63 02/21/25 20:45 97.5 F L 62 18 147/63 H 98 02/21/25 15:30 97.7 F 64 18 160/65 H 95 O2 Del Method 02/22/25 12:55 02/22/25 12:33 Room Air 02/22/25 11:37 Room Air 02/22/25 08:08 Room Air 02/22/25 05:15 Room Air 02/22/25 00:33 Room Air 02/21/25 22:03 02/21/25 20:45 Room Air 02/21/25 15:30 Room Air Recovery Score Activity: Moves 4 extremities Respiration: Deep Breath/Cough Circulation: +/-20% PreAnes Value Consciousness: Fully Awake Discharge Sedation Level of Care: Fast Track Phase II
--- NOTE | 2025-02-22 13:43 | Cardiology Progress Note ---
Date of Service February 22, 2025 Assessment & Plan (1) Chest pain: (2) PAF (paroxysmal atrial fibrillation): (3) Hypertension: (4) Dyslipidemia, goal LDL below 70: (5) Family history of ischemic heart disease: Plan 74-year-old female presenting to [facility] ER via EMS on February 19, 2025 with chest discomfort predominantly atypical though with some concerning characteristics. Patient with multiple risk factors including hypertension, dyslipidemia, type 2 diabetes mellitus, family history of ischemic heart disease, inactivity, and obesity. EKG without acute change. High- sensitivity troponin negative. Chest x-ray without acute cardiopulmonary findin gs. Telemetry monitoring revealing sinus with occasional atrial ectopy only; no atrial fibrillation. Patient chronically prescribed apixaban (Eliquis) anticoagulation. Chest Pain - [place] R/O HTN DM PAF - currently in sinus rhythm CKD cardiac cath - no significant obstructive CAD Restart Eliquis continue statin, metoprolol succinate start Lisinopril adjust anti-HTN meds keeping systolic BP between 100-140 mmHg salt restriction counseling medical management stable from cardiac standpoint for discharge later today if continues to be stable f/u in cardiology clinic post discharge Admission and Anticipated Discharge Date Admission Date: February 19, 2025 Supervising Physician Co-Signing Physician Notes Subjective Patient on exam is in bed in NAD; S/P card cath; no c/o cp, sob, palpitations, dizziness, LOC Review of Systems Review of Systems: Complete Review of Systems is as stated above, negative, or noncontributory Physical Exam Physical Exam: General: A&Ox3. NAD. HENT: Normocephalic. Atraumatic. Eyes: PER. Conjunctiva pink, sclera clear. Neck: No carotid bruits. No JVD. Heart: RRR, 60 bpm. Soft systolic murmur Lungs: Clear to auscultation. Abdomen: +BS. Extremities: No clubbing, cyanosis, or edema. Limited neurological examination is without focal deficits. Results & Data Vital Signs (Past 12 Hours) Vital Signs Temp Pulse Pulse Pulse Resp BP Pulse Ox 02/22/25 12:55 59 L 02/22/25 12:33 62 16 148/56 H 97 02/22/25 11:37 36.7 C 68 18 137/72 97 02/22/25 08:08 36.4 C L 61 18 140/73 98 02/22/25 05:15 36.9 C 56 L 18 152/69 H 95 O2 Del Method 02/22/25 12:55 02/22/25 12:33 Room Air 02/22/25 11:37 Room Air 02/22/25 08:08 Room Air 02/22/25 05:15 Room Air Laboratory Results Laboratory Results WBC 7.61 K/ul (4.8-10.8) 02/20/25 05:41 RBC 4.18 M/uL (4.20-5.40) L 02/20/25 05:41 Hgb 12.1 g/dl (12.0-16.0) 02/20/25 05:41 Hct 37.3 % (37.0-47.0) 02/20/25 05:41 MCV 89.2 fL (80.0-100.0) 02/20/25 05:41 MCH 28.9 pg (25.0-34.0) 02/20/25 05:41 MCHC 32.4 g/dL (32.0-36.0) 02/20/25 05:41 RDW Std Deviation 43.7 fL (36.4-46.3) 02/20/25 05:41 RDW Coeff of Olya 13.3 % (11.5-14.5) 02/20/25 05:41 Plt Count 245 K/uL (130-400) 02/20/25 05:41 MPV 10.4 fL (9.4-12.4) 02/20/25 05:41 Immature Gran % (Auto) 0.3 % 02/19/25 16:00 Neut % (Auto) 66.2 % 02/19/25 16:00 Lymph % (Auto) 23.9 % 02/19/25 16:00 Grant % (Auto) 6.5 % 02/19/25 16:00 Eos % (Auto) 2.6 % 02/19/25 16:00 Baso % (Auto) 0.5 % 02/19/25 16:00 Neut # (Auto) 7.04 K/uL (1.40-6.50) H 02/19/25 16:00 Lymph # (Auto) 2.54 K/uL (1.20-3.40) 02/19/25 16:00 Grant # (Auto) 0.69 K/uL (0.11-0.59) H 02/19/25 16:00 Eos # (Auto) 0.28 K/uL (0.00-0.50) 02/19/25 16:00 Baso # (Auto) 0.05 K/uL (0.00-0.20) 02/19/25 16:00 Immature Gran # (Auto) 0.03 K/uL (0.01-0.20) 02/19/25 16:00 PT 10.4 Seconds (9.0-12.0) 02/19/25 16:00 INR 1.0 (0.9-1.1) 02/19/25 16:00 Sodium 138 mmol/L (136-145) 02/21/25 05:36 Potassium 4.5 mmol/L (3.5-5.1) 02/21/25 05:36 Chloride 104 mmol/L (98-107) 02/21/25 05:36 Carbon Dioxide 27 mmol/L (21-32) 02/21/25 05:36 Anion Gap 7 (3-11) 02/21/25 05:36 BUN 24 mg/dl (6-23) H 02/21/25 05:36 Creatinine 1.20 mg/dl (0.6-1.2) 02/21/25 05:36 Est Cr Clr Drug Dosing 44.7 ml/min 02/21/25 05:36 eGFR 47.50 02/21/25 05:36 BUN/Creatinine Ratio 20.0 (10-20) 02/21/25 05:36 Glucose 165 mg/dl (70-99(Fasting)) H 02/21/25 05:36 POC Glucose 117 mg/dl (70-99) H 02/22/25 06:51 Calcium 9.5 mg/dl (8.6-10.3) 02/21/25 05:36 Phosphorus 3.9 mg/dl (2.5-4.9) 02/20/25 05:41 Magnesium 2.2 mg/dl (1.7-2.4) 02/21/25 05:36 Total Bilirubin 0.3 mg/dl (0.2-1.0) 02/19/25 16:00 AST 20 U/L (13-39) 02/19/25 16:00 ALT 16 U/L (7-52) 02/19/25 16:00 Alkaline Phosphatase 98 U/L (34-104) 02/19/25 16:00 Troponin I High Sens 6.7 pg/ml (0-14) 02/20/25 05:41 Total Protein 6.9 gm/dl (6.0-8.3) 02/19/25 16:00 Albumin 3.8 gm/dl (3.4-5.0) 02/19/25 16:00 Globulin 3.1 gm/dl (2.5-4.0) 02/19/25 16:00 Albumin/Globulin Ratio 1.2 (0.9-2) 02/19/25 16:00 Lipase 62 U/L (11-82) 02/19/25 16:00 TSH 1.145 uIu/ml (0.300-4.500) 02/19/25 16:00 Urine Color Yellow 02/19/25 17:00 Urine Appearance Clear (Clear) 02/19/25 17:00 Urine pH 7.5 (4.5-7.5) 02/19/25 17:00 Ur Specific [place] 1.012 (1.000-1.030) 02/19/25 17:00 Urine Protein Negative (Negative) 02/19/25 17:00 Urine Glucose (UA) Negative (Negative) 02/19/25 17:00 Urine Ketones Negative (Negative) 02/19/25 17:00 Urine Blood Negative (Negative) 02/19/25 17:00 Urine Nitrite Negative (Negative) 02/19/25 17:00 Urine Bilirubin Negative (Negative) 02/19/25 17:00 Urine Urobilinogen Negative (Negative) 02/19/25 17:00 Ur Leukocyte Esterase Trace (Negative) H 02/19/25 17:00 Urine WBC (Auto) 0-5 /hpf (0-5) 02/19/25 17:00 Urine RBC (Auto) 3-5 /hpf (0-2) H 02/19/25 17:00 U Hyaline Cast (Auto) 0-2 /lpf (0-2) 02/19/25 17:00 U Epithel Cells (Auto) 0-2 /hpf (0-2) 02/19/25 17:00 Urine Bacteria (Auto) None Seen (None Seen) 02/19/25 17:00 Urine Comment 08/25/25 17:00 Lyme Disease Screen Negative (Negative) 02/19/25 16:00 Impressions Chest X-Ray 02/19/25 16:11 EXAM: X-ray chest one-view portable CLINICAL HISTORY: Chest pain PRIORS: 05/02/2017 TECHNIQUE: Frontal view chest FINDINGS: Large body habitus noted. The chest is well-expanded. No airspace consolidation, effusion or congestive changes. Heart size is normal. No pneumothorax. Trachea is patent. Osseous structures demonstrate no acute abnormality. No radiopaque foreign body. IMPRESSION: No plain film evidence of an acute cardiopulmonary process. Electronically signed by Izabela Willis 02-19-2025 4:57 PM Diagnostic Findings 02/20/25 ECHOCARDIOGRAM Interpretation Summary Left ventricular systolic function is normal. Left Ventricular Ejection Fraction = 55-60%. Grade I diastolic dysfunction, (abnormal relaxation pattern). The aortic valve is tricuspid. The leaflet thickness if normal. There is no aortic stenosis, and no significant insufficiency. Mild pulmonic valvular regurgitation. There is mild mitral regurgitation. Grade I diastolic dysfunction, (abnormal relaxation pattern). Medications Administered Home Medications Medication Instructions Recorded Confirmed Last Taken atorvastatin 20 mg tablet 20 mg PO DAILY #0 tabs 07/31/13 02/19/25 02/18/25 escitalopram oxalate 10 mg tablet 10 mg PO DAILY ##0 05/02/17 02/19/25 02/19/25 (Lexapro) fexofenadine 180 mg tablet 180 mg PO DAILY #0 tabs 05/02/17 02/19/25 02/19/25 (Ashanti Allergy) magnesium oxide 400 mg PO DAILY #0 tabs 05/02/17 02/19/25 02/19/25 metformin 500 mg tablet,extended 500 mg PO BID ##0 05/02/17 02/19/25 02/19/25 release 24 hr metoprolol tartrate 25 mg tablet 12.5 mg PO DAILY ##0 05/02/17 02/19/25 02/19/25 apixaban 5 mg tablet (Eliquis) 5 mg PO BID 01/08/24 02/19/25 02/19/25 benazepril 10 mg tablet 10 mg PO DAILY 01/08/24 02/19/25 02/19/25 allopurinol 100 mg tablet 100 mg PO DAILY 01/06/25 02/19/25 02/19/25 insulin degludec 100 29 unit subcut DAILY 02/19/25 02/19/25 02/19/25 unit-liraglutide 3.6 mg/mL(3 mL) subcutaneous pen (Piyush 100/3.6) sitagliptin phosphate 25 mg tablet 25 mg PO DAILY 02/19/25 02/19/25 02/19/25 (Newton) Active Medications Generic Name Dose Route Start Last Admin Trade Name Freq PRN Reason Stop Dose Admin Acetaminophen 650 mg 02/19/25 20:37 02/21/25 12:51 Acetaminophen 325 Mg Tab PO 03/21/25 20:36 650 mg Q4H PRN Administration Pain or Fever Apixaban 5 mg 02/19/25 21:00 02/21/25 09:58 Apixaban 5 Mg Tablet PO 03/21/25 20:59 5 mg BID SHASHI Administration Atorvastatin Calcium 20 mg 02/20/25 09:00 02/22/25 09:48 Atorvastatin 20 Mg Tab PO 03/22/25 08:59 20 mg DAILY SHASHI Administration Escitalopram Oxalate 10 mg 02/20/25 09:00 02/22/25 09:47 Escitalopram Oxalate 10 Mg Tab PO 03/22/25 08:59 10 mg DAILY SHASHI Administration Insulin Aspart 0 units 02/20/25 16:30 02/22/25 12:38 Insulin Aspart Per Unit Charge UT 03/21/25 20:59 Not Given ACHS [facility] Insulin Glargine 12 units 02/22/25 09:00 02/22/25 09:47 Lantus Per Unit Charge UT 03/24/25 08:59 12 units DAILY SHASHI Administration Magnesium Oxide 400 mg 02/20/25 09:00 02/22/25 09:51 Magnesium Oxide 400 Mg Tab PO 03/22/25 08:59 400 mg DAILY SHASHI Administration Metoprolol Succinate 12.5 mg 02/19/25 21:00 02/22/25 09:48 Metoprolol Succ 25mg Ext Rel Tab PO 03/21/25 20:59 12.5 mg BID SHASHI Administration PG Care Time/CCT Total # of Minutes Spent Total Time Spent with Patient: Total time spent is greater than 50% in coordination of care (as documented) at patient's floor/unit and/or counseling patient: Coding Level of Care Code 13454 SUB INP/OBS CARE 350MIN Diagnoses Chest pain R07.9 PAF (paroxysmal atrial fibrillation) I48.0 Hypertension I10 Dyslipidemia, goal LDL below 70 E78.5 Family history of ischemic heart disease Z82.49
--- NOTE | 2025-02-22 13:50 | Cardiac Catheterization ---
[facility] Data: Meter/Relay Craftsman Cardiac Status Clinical evaluation leading to the procedure CAD Presenation: Positive Stress Test Diagnostic Physicians Name: Hammad Hernandez MD Closure Device Recommendations: Medical Therapy and/or Counseling Cardiac Cath Procedure Full Procedure Date February 22, 2025 Pre-Procedure Diagnosis Pre-Procedure Diagnosis: Positive Stress Test AUC Score AUC Score: 7 Post-Procedure Diagnosis Post-Procedure Diagnosis: Normal Coronary Arteries and Normal Intracardiac Pressures Procedure(s) Performed Procedure(s) Performed: Coronary Angiography and Left Heart Cath Disbursing Officer Hammad Hernandez MD Environmental Designer(s) Canelo Estimated Blood Loss Estimated Blood Loss: 10 Medication(s) Medication(s): Fentanyl, Heparin, Lidocaine 1%, Nicardipine, Nitroglycerin and Versed Summary of Findings Indication: Abnormal stress test Access: 6 Fr slender right radial artery Catheters: Purmela, diagnostic JR4 Findings: LM -normal caliber, no significant disease LAD -medium caliber, no significant disease. Distal vessel small and tapers prior to apex. Multiple tortuous diagonals without disease. Circumflex -medium caliber, angulated in the midsegment with 30% stenosis. Distal vessel without significant disease. Small OM 2, left PLB without significant disease. RCA -large caliber, dominant, angiographically normal. Gives of large RPDA without disease. PLB without disease. LVEDP -4 Arterial Closure: TR band Summary: 1. Minimal nonobstructive coronary artery disease - Angulated mid circumflex with 30% stenosis 2. Normal intracardiac filling pressure Recommendations: No acute or high risk findings to explain patient's abnormal stress test/s ymptoms. Suspect stress test was false positive. Continued ASCVD risk factor modification Hemodynamics Rest Ao:: 115/56/80 Final Ao: 125/58/43 LV: 122/4 Recommendations Recommendations: Medical Therapy and/or Counseling Specimens Specimens: None Radiation Exposure (mGy) 484 Contrast (mls) 35 Anesthesia Moderate [id number] Procedural Complication(s) None Disposition Meter/Relay Craftsman Holding/Recovery I attest to the content of the Intraoperative Record and any orders documented therein. Any exceptions are noted below. [facility] Card Cath Procedure Codes Cardiac Catheterization Procedure 1: Cardiovascular Cath Procedures: 88887 Coronaries and LHC (+/-LV) Moderate Sedation Procedure 1: Sedation/Anesthesia: 69118 Mod Sedation by the same physician;Init15 Min Child Age 5 & Up PG Care Time/CCT Total # of Minutes Spent Total Time Spent with Patient: Total time spent is greater than 50% in coordination of care (as documented) at patient's floor/unit and/or counseling patient:
[2025-02-22 14:07] VITALS: O2SAT 95
[2025-02-22 14:40] VITALS: RESP 20
--- NOTE | 2025-02-22 14:43 | Discharge Summary ---
Discharge Summary Date of Service February 22, 2025 Principal Dx & Hospital Course #1 = Principal Diagnosis (1) Chest pain on exertion: 74 F with past medical history of Afib on Eliquis and rate control with metoprolol, HTN, DM Type II without insulin presenting with chest pain. Reports having chest pain when listing a pot of water to freeze corn this morning. Chest pain 8/10, throbbing, and radiating to head, neck and back. She thought it was initially indigestion, but persisted throughout the day. She took Tylenol and a baby aspirin at home. Arrived here via EMS. Aspirin and Nitro given by EMS with relief of chest pain. #Chest pain, exertional * Chest pain, exertional in nature, w/ radiation to back/neck--> ASA and Nitro given EMS w/ relief * Most recent TTE on 11/12/2023 showing LV ejection Fraction = 55%; left ventricular diastolic function is mildly abnormal (grade I); New mild aortic valve sclerosis found * EKG with no acute ischemia, Trop x 2 neg. * Chest Xray without acute cardiopulmonary dx * Cardio on board, appreciate recs. * cardiac stress test read pending #Paroxysmal Afib * Continue rate control with home Metoprolol * Tele monitoring * EKG for chest pain as needed #CKD #Hypertension * BP Goal <130/80 * History of low BP's and recently weaned from benazepril; BP stable here. * Stable renal functioning; Baseline Creatinine 1.1-1.2; now wnl #Diabetes Mellitus, Type II, insulin-dependent * SSI while inpatient * Hold home Xultophy; will given Lantus while inpatient--> decreased dose for NPO status * Most recent A1C 6.8% (12/2024) I spent a total of 40 minutes in direct patient care, including [id number] time with the patient and/or family, reviewing medical records, ordering and reviewing diagnostic tests, and coordinating care with other healthcare providers. This time includes: history taking, physical examination, medical decision making, counseling, ECG interpretation, imaging interpretation, lab interpretation, orders, and education, excluding time spent in the performance of separately billed services. (2) Afib: (3) Hypertension: (4) History of diabetes mellitus: Notes For Next Care Provider 74 F with past medical history of Afib on eliquis and rate control with metoprolol, HTN, DM Type II without insulin presenting with chest pain. Admitted to medicine for chest pain rule out. On medicine, cardiology consulted, echo unrevealing, stress echo after that revealing area of akinesis. Cardiac cath performed with mild CAD and no interventional lesions. On 02/22/2025 patient medically stable for discharge per medicine and cardiology. To do: [ ] f/u with cardiolgy Incidentals: atypical stress test Medication Changes From Visit -stop benzapril, start lisinopril, start metoprolol Admission HPI Per Admitting Provider 74 F with past medical history of Afib on eliquis and rate control with metoprolol, HTN, DM Type II without insulin presenting with chest pain. Reports having chest pain when listing a pot of water to freeze corn this morning. Chest pain 02/04, throbbing, and radiating to head, neck and back. She thought it was initially indigestion, but persisted throughout the day. She took Tylenol and a baby aspirin at home. Arrived here via EMS. Aspirin and Nitro given by EMS with relief of chest pain. Denies fever, chills, weight loss, weakness, cognitive changes, vision/hearing changes, swelling, difficulty breathing, urinary concerns, N/V/D, joint swelling/pain, ambulation difficulty, skin rashes, lesions, bleeding, bruising. In the ED, patient was hemodynamically stable with no evidence of infection or sepsis. Labs were essentially unremarkable. Trop 3.3 initially with 2H recheck pending. History of Afib with rate control with Metoprolol, also on Eliquis. Mag and Phos stable. TSH norm. EKG showing Sinus rhythm, first AV block, 61 bpm, no overt ST elevation or depression, QTc 43, 236. Chest Xray showing acute cardiopulmonary process. As per external chart review, patient was seen by Cardiology on 11/2024. As per visit record, patient had a TTE on 11/12/2023 showing LV ejection Fraction = 55%; left ventricular diastolic function is mildly abnormal (grade I); Mild aortic valve sclerosis is present. On November 03, 2023, patient had a Lexiscan negative for inducible ischemia or myocardial scar. Gated SPECT images revealed normal myocardial thickening and wall motion. The LV ejection fraction was calculated at 70%. History obtained primarily from the patient and via hospitalization record. The patient's family was at the bedside and assisted with past medical history. External chart review obtained from [facility]. Discharge Exam Gen: A&O 3 NAD HEENT: NCAT, EOMI, not icteric. External ears normal. No rhinorrhea. Moist mucous membranes. Neck: Supple, full range of motion, no observable masses, No meningeal sign. Lungs: No Respiratory distress. CV: RRR, no edema. Abdomen: Soft, nondistended, No rebound tenderness. MSK: No joint swelling, no redness. Skin: No rashes, petechiae, lesions. Normal color per patient. Neuro: Normal Gait, Grossly intact. Psych: Appropriate for situation. Updated Medication List Medication Instructions Recorded Confirmed Type atorvastatin 20 mg tablet 20 mg PO DAILY #0 tabs 07/31/13 02/19/25 History escitalopram oxalate 10 mg tablet 10 mg PO DAILY ##0 05/02/17 02/19/25 History (Lexapro) fexofenadine 180 mg tablet 180 mg PO DAILY #0 tabs 05/02/17 02/19/25 History (Ashanti Allergy) magnesium oxide 400 mg PO DAILY #0 tabs 05/02/17 02/19/25 History metformin 500 mg tablet,extended 500 mg PO BID ##0 05/02/17 02/19/25 History release 24 hr metoprolol tartrate 25 mg tablet 12.5 mg PO DAILY ##0 05/02/17 02/19/25 History apixaban 5 mg tablet (Eliquis) 5 mg PO BID 01/08/24 02/19/25 History benazepril 10 mg tablet 10 mg PO DAILY 01/08/24 02/19/25 History allopurinol 100 mg tablet 100 mg PO DAILY 01/06/25 02/19/25 History insulin degludec 100 29 unit subcut DAILY 02/19/25 02/19/25 History unit-liraglutide 3.6 mg/mL(3 mL) subcutaneous pen (Piyush 100/3.6) sitagliptin phosphate 25 mg tablet 25 mg PO DAILY 02/19/25 02/19/25 History (Januvia) lisinopril 5 mg tablet 5 mg PO QAM #30 tabs 02/22/25 Rx metoprolol succinate 25 mg 12.5 mg (1/2 x 25 mg) PO BID #30 02/22/25 Rx tablet,extended release 24 hr tabs Hospital Stay Data Consultations 02/19/25 17:51 ED Decision to Admit Stat 02/19/25 20:37 Consult Cardiology Routine Procedures Performed Operation Date: 02/22/25 14:00 Actual Procedures p Cath, Left with Cors and Vent - Hammad Hernandez MD s Cineradiography w/Routine Exam - Hammad Hernandez MD Diagnostic Imagining Performed 02/22/25 12:13 CL Cath Imgs for PACS use only Routine Pending Results Patient Have Any Pending Studies at Discharge: No Discharge Instructions Given to Patient (Per Discharging Provider) Diagnosis: chest pain, atypical stress test, no CAD Follow Ups: PCP, cardiology Incidentals: atypical stress test 1. Please follow up with PCP and cardiology. 2. Stay hydrated! Total Time Total Time Spent Total Time Spent (In Minutes): I spent a total of 35 minutes in direct patient care, including [id number] time with the patient and/or family, reviewing medical records, ordering and reviewing diagnostic tests, and coordinating care with other healthcare providers. This time includes: history taking, physical examination, medical decision making, counseling, ECG interpretation, imaging interpretation, lab interpretation, orders, and education, excluding time spent in the performance of separately billed services.
[2025-02-22 15:09] VITALS: BP 129/56
[2025-02-22 15:32] VITALS: PULSE 68
--- NOTE | 2025-02-24 05:33 | Electrocardiogram Report ---
Test Reason : Blood Pressure : */* mmHG Vent. Rate : 61 BPM Atrial Rate : 61 BPM P-R Int : 252 ms QRS Dur : 86 ms QT Int : 420 ms P-R-T Axes : 17 5 50 degrees QTcB Int : 422 ms Sinus rhythm with 1st degree A-V block Otherwise normal ECG When compared with ECG of 02-May-2017 06:00, No significant change was found Confirmed by Boris Amaya ([id number]) on 02/24/2025 5:33:31 AM Referred By: REFERRED SELF Confirmed By: Boris Amaya
--- NOTE | 2025-02-24 05:34 | Electrocardiogram Report ---
Test Reason : Blood Pressure : */* mmHG Vent. Rate : 55 BPM Atrial Rate : 55 BPM P-R Int : 266 ms QRS Dur : 86 ms QT Int : 450 ms P-R-T Axes : 53 17 31 degrees QTcB Int : 430 ms Sinus bradycardia with 1st degree A-V block Otherwise normal ECG When compared with ECG of 19-Feb-2025 15:58, No significant change was found Confirmed by Boris Amaya ([id number]) on 02/24/2025 5:34:06 AM Referred By: REFERRED SELF Confirmed By: Boris Amaya
== END 2025-02-22 17:32 | disposition home or self-care (01) | DRG 287 ==
LOC: ED 15:52 → SUATTDRO 18:06 → 2E 18:06